=== PATIENT | female | born 1985 ===

== ENCOUNTER 2025-04-24 05:09 | Day surgery (SDC) | payer OTHER ==
[2025-04-14 09:13] LABS: BASO % 0.6 % (0.1-1.2); EOS # 0.07 (0.04-0.54); HEMATOCRIT 40.8 % (34.1-44.9); HEMOGLOBIN 13.2 g/dL (11.2-15.7); LYMPH # 2.27 (1.18-3.74); LYMPH % 32.8 % (19.3-53.1); MONO # 0.33 (0.24-0.82); MONO % 4.8 % (4.7-12.5); NEUT % 60.5 % (34.0-71.1); PLATELET COUNT 367 K/uL (163-369); RED BLOOD COUNT 4.71 M/uL (3.93-5.22); RED CELL DISTRIBUTION WIDTH 12.9 % (11.6-14.4)
[2025-04-14 09:19] LABS: URINE APPEARANCE Cloudy; URINE BILIRRUBIN Negative (NEGATIVE); URINE BLOOD Negative; URINE COLOR Dark Yellow; URINE GLUCOSE Negative (NEGATIVE); URINE LEUKOCYTE Trace; URINE NITRATE Negative; URINE PROTEIN 30 (NEGATIVE)
[2025-04-14 09:23] LABS: URINE CAST 1.62 uL (0.0-1.40); URINE EPITHELIAL CELLS 104.6 uL (0.0-38.8); URINE RBC 6.1 uL (0.0-20.8); URINE WBC 66.9 uL (0.0-23.2)
[2025-04-14 09:39] LABS: URINE KETONE 80 (NEGATIVE)
[2025-04-14 09:40] LABS: TYPE CELLS SQUAMOUS
[2025-04-14 09:43] LABS: INR 1.05; PROTHROMBIN TIME 11.4 SECONDS (9.0-11.5)
[2025-04-14 09:57] LABS: ALBUMIN 4.3 gm/dL (3.4-5.0); BILIRUBIN TOTAL 0.48 mg/dL (0.3-1.2); CALCIUM 9.4 mg/dL (8.5-10.1); CREATININE SERUM 0.74 mg/dL (0.55-1.02); GFR 87.83; GLOBULINA 3.3 G/DL (2.4-3.5); POTASSIUM 4.37 mEq/L (3.5-5.1); TOTAL PROTEIN 7.6 gm/dL (6.4-8.2)
[2025-04-24] MEDS ORDERED: BUPIVACAINE HCL/MPF 0.5% 30ML VIAL ONE (12:04)
[2025-04-24] MEDS ORDERED: POVIDONE-IODINE 118 ML BOTT TOP ONE (12:04)
[2025-04-24] MEDS ORDERED: ONDANSETRON HCL 2 MG/ML VIAL IV ONE (14:00)
[2025-04-24] MEDS ORDERED: KETOROLAC TROMETHAMINE 30 MG VIAL IV ONE (14:00)
[2025-04-24] MEDS ORDERED: MORPHINE SULFATE 4 MG/ML VIAL IV ONE (14:20)
== END 2025-04-24 15:50 | disposition home or self-care (01) ==
LOC: CIR.AMB 05:09
PROVIDERS: ATTEND Obstetrics & Gynecology
DX: N70.91 Salpingitis, unspecified (principal); Z30.2 Encounter for sterilization; R10.2 Pelvic and perineal pain